=== PATIENT | female | born 1945 | race Caucasian/White ===

== ENCOUNTER 2020-06-03 05:58 | Inpatient (IN) ==
[2020-06-03] MEDS ORDERED: Dexamethasone IV 4 MG/ML VIAL 1 ml VIAL IV SLOW PU ONE (06:00)
[2020-06-03] MEDS ORDERED: Buffered Lidocaine 1% SYRIN 1 ml INTRADERM ONE ×2 (06:00→06:14)
[2020-06-03] MEDS ORDERED: Lactated Ringers 1000 ml BAG 1,000 ML IV SCH (06:00)
[2020-06-03] MEDS ORDERED: Dexamethasone IV 4 MG/ML VIAL 1 ml VIAL ONE ×2 (06:14→09:12)
[2020-06-03] MEDS ORDERED: ceFAZolin 2 GM PREMIX 2 GM/50 ML BAG ONE (06:14)
[2020-06-03] MEDS ORDERED: fentaNYL 100 mcg/2 ml 50 MCG/ML VIAL ONE ×2 (06:48→08:25)
[2020-06-03] MEDS ORDERED: Midazolam 2 mg/2 ml VIAL 1 mg/ml 2 ml VIAL (2 mg) ONE ×2 (06:49→09:58)
[2020-06-03] MEDS ORDERED: Lidocaine 1% w EPI 1:100,000 MDV 20 ML VIAL ONE (07:04)
[2020-06-03] MEDS ORDERED: Vancomycin 1,000 MG VIAL ONE (07:04)
[2020-06-03] MEDS ORDERED: Bupivacaine 0.5% SDV PF 30ML VIAL ONE (07:04)
[2020-06-03] MEDS ORDERED: Albumin Human 5% 12.5 GM/250 ML BTL IV SCH (08:00)
[2020-06-03] MEDS ORDERED: Propofol 10 MG/ML 20 ML BTL ONE ×2 (08:29→11:35)
[2020-06-03] MEDS ORDERED: Phenylephrine 40 mcg/mL 10mL (400mcg) SYRINGE ONE (08:51)
[2020-06-03] MEDS ORDERED: Ondansetron 4 mg VIAL 2 MG/ML 2 ml VIAL ONE (09:12)
[2020-06-03] MEDS ORDERED: Esmolol 10 MG/ML 10 ML (100 mg) ONE (09:39)
[2020-06-03] MEDS ORDERED: diPHENhydraMINE IV 50 MG/ML 1 ml VIAL (BENADRYL) IV PRN (10:07)
[2020-06-03] MEDS ORDERED: oxyCODONE/Acetamin 5/325 mg TAB PO PRN (10:07)
[2020-06-03] MEDS ORDERED: diPHENhydraMINE 25 mg TAB PO PRN (10:07)
[2020-06-03] MEDS ORDERED: Ondansetron 4 mg VIAL 2 MG/ML 2 ml VIAL IV PRN (10:07)
[2020-06-03] MEDS ORDERED: Magnesium Hydroxide LIQ 30 ML UDC PO PRN (10:07)
[2020-06-03] MEDS ORDERED: Ondansetron ODT 4 mg TAB 4 MG TAB PO PRN (10:07)
[2020-06-03] MEDS ORDERED: Lactulose 30 ml UDC PO PRN (10:07)
[2020-06-03 10:22] LABS: Magnesium 2.6 mg/dL (1.9-2.7); Phosphorus 3.9 mg/dL (2.5-5.0)
[2020-06-03] MEDS ORDERED: Propofol 10 mg/ml 100 ML BTL 0 ML ONE (10:39)
[2020-06-03 12:01] LABS: Troponin I 0.03 ng/mL (<0.03)
[2020-06-03] MEDS ORDERED: EPINEPHrine SYR 0.1MG/ML 10 ml SYRINGE ONE (12:11)
[2020-06-03] MEDS: D5W 1/2 NS 1000 ml BAG 1,000 ML IV SCH ×2 (13:05→21:32)
[2020-06-03 15:06] LABS: ABS Lymphocytes 0.4 10^3/ul (1.0-4.8); ABS Monocytes 0.2 10^3/ul (0-0.8); Eosinophil % 0.1 %; Hematocrit 29 % (35-47); Hemoglobin 9.7 g/dL (12.0-16.0); Lymphocyte % 4.4 %; Mean Corpuscular HGB Conc 34 g/dL (31-36); Mean Corpuscular Hemoglobin 32 pg (27-31); Mean Corpuscular Volume 95 fL (80-97); Mean Platelet Volume 8.5 fL (7.4-10.4); Platelet Count 146 10^3/uL (150-450); Red Blood Count 3.05 10^6 /uL (3.70-4.87); Red Cell Distribution Width 15 % (10-15); White Blood Count 9.7 10^3/uL (3.5-10.8)
[2020-06-03 15:22] LABS: INR 1.08 (0.82-1.09)
[2020-06-03 15:38] LABS: Albumin 3.5 g/dL (3.2-5.2); Albumin/Globulin Ratio 1.9 (1-3); BUN/Creatinine Ratio 33.3 (8-20); Calcium 7.8 mg/dL (8.6-10.3); EGFR African American 63.8 (>60); EGFR Non-African American 52.7 (>60); Globulin 1.8 g/dL (2-4); Total Bilirubin 0.3 mg/dL (0.2-1.0); Total Protein 5.3 g/dL (6.4-8.9)
[2020-06-03 15:46] LABS: Potassium 5.1 mmol/L (3.5-5.0)
[2020-06-03] MEDS: ceFAZolin 1 GM ADVAN 1 GM in NS 0.9% 50 ML 50 ML IVPB SCH (17:07)
[2020-06-03 17:57] LABS: Troponin I 0.06 ng/mL (<0.03)
[2020-06-03] MEDS: Magnesium Hydroxide LIQ 30 ML UDC PO SCH (21:53)
[2020-06-03 23:43] LABS: Troponin I 0.05 ng/mL (<0.03)
[2020-06-04] MEDS: ceFAZolin 1 GM ADVAN 1 GM in NS 0.9% 50 ML 50 ML IVPB SCH ×2 (00:51→08:04)
[2020-06-04 06:19] LABS: Hematocrit 32 % (35-47); Hemoglobin 10.6 g/dL (12.0-16.0); Mean Platelet Volume 8.7 fL (7.4-10.4); Platelet Count 211 10^3/uL (150-450)
[2020-06-04 06:47] LABS: BUN/Creatinine Ratio 23.4 (8-20); Calcium 8.5 mg/dL (8.6-10.3); EGFR African American 60.3 (>60); EGFR Non-African American 49.9 (>60); Potassium 4.6 mmol/L (3.5-5.0)
[2020-06-04] MEDS: Vitamin THERAPEUTIC TAB PO SCH (08:02)
[2020-06-04] MEDS: Magnesium Hydroxide LIQ 30 ML UDC PO SCH ×2 (08:03→20:24)
[2020-06-04] MEDS ORDERED: Lactated Ringers 500 ml BAG 500 ML IV ONE (20:16)
[2020-06-05] MEDS: Magnesium Hydroxide LIQ 30 ML UDC PO SCH (08:49)
[2020-06-05 08:50] LABS: Hematocrit 27 % (35-47); Hemoglobin 9.1 g/dL (12.0-16.0); Mean Platelet Volume 8.9 fL (7.4-10.4); Platelet Count 183 10^3/uL (150-450)
[2020-06-05] MEDS: Vitamin THERAPEUTIC TAB PO SCH (08:50)
[2020-06-05 09:06] LABS: BUN/Creatinine Ratio 25.9 (8-20); Calcium 8.1 mg/dL (8.6-10.3); EGFR African American 59.7 (>60); EGFR Non-African American 49.3 (>60); Potassium 4.7 mmol/L (3.5-5.0)
[2020-06-05 11:53] VITALS: BP 103/56
== END 2020-06-05 14:28 | disposition home health service (06) | DRG 469 ==
LOC: OR 05:58 → ICU 10:07 → SSU 21:12
PROVIDERS: ADMIT Orthopaedic Surgery; ATTEND Orthopaedic Surgery